=== PATIENT | female | born 1950 | race Caucasian/White ===

== ENCOUNTER → 2020-01-01 11:56 | Outpatient (CLI) | payer OTHER, SELFPAY ==
--- NOTE | 2020-01-01 | DI.RAD.S_ITS ---
PROCEDURE: XR CHEST 2V INDICATIONS: COUGH TECHNIQUE: 2 views of the chest were acquired. COMPARISON: [facility], CT, ABDOMEN/PELVIS WITH CONTRAST, 11/25/2015, 10:50. [facility], CT, KIDNEY/ URETER/BLADDER, 10/03/2015, 18:37. FINDINGS: Surgical changes and devices: None. Lungs and pleura: Lungs are clear. No pleural effusions or pneumothorax. Mediastinum: The cardiac contours are within normal limits. The aorta demonstrates calcification and tortuosity. A hiatal hernia can be seen. Bones and chest wall: No suspicious bony abnormalities. Age-appropriate bony degenerative changes are seen. Accentuated thoracic kyphosis is seen. Soft tissues appear unremarkable. IMPRESSION: Clear lungs. If there is clinical concern for a developing pulmonary process, a short-term followup chest series (with PA and lateral views, performed in deep inspiration) is suggested for further evaluation. Dictated by: John Jones M.D. on 01/01/2020 at 11:28 Approved by: John Jones M.D. on 01/01/2020 at 11:29
== END ==
PROVIDERS: Family Provider Family Medicine; PCP Family Medicine; Referring Provider Family Medicine; Visit Provider Family Medicine
DX: R05 Cough (principal)
CPT/HCPCS: 71046

== ENCOUNTER → 2020-05-21 12:09 | Outpatient (CLI) | payer OTHER, SELFPAY ==
--- NOTE | 2020-05-21 | DI.RAD.S_ITS ---
PROCEDURE: XR FINGER RT MIN 2V INDICATIONS: RIGHT RING FINGER PAIN/ FOREIGN OBJECT? TECHNIQUE: AP hand, 2 views of the right finger(s) acquired. COMPARISON: None. FINDINGS: Bones: No fracture identified. Diffuse interphalangeal and metacarpophalangeal degenerative changes. 4 mm ill-defined density seen in palmar soft tissues of the right ring finger at the level of the proximal phalanx. This could represent cortical fracture fragment although cannot exclude loose body. There is associated soft tissue swelling. Incidental marginal lucency projecting in the 3rd metacarpal head. First CMC and triscaphe joint degeneration IMPRESSION: Radiopaque foreign body versus cortical fracture fragment projecting in the volar soft tissues of the ring finger at the level of the proximal phalanx as above. Dictated by: Chan Reed M.D. on 05/21/2020 at 15:26 Approved by: Chan Reed M.D. on 05/21/2020 at 15:29
== END ==
PROVIDERS: Family Provider Family Medicine; PCP Family Medicine; Referring Provider Family Medicine; Visit Provider Family Medicine
DX: M79.644 Pain in right finger(s) (principal); M18.11 Unilateral primary osteoarthritis of first carpometacarpal joint, right hand
CPT/HCPCS: 73140

== ENCOUNTER → 2020-07-01 11:09 | Outpatient (CLI) | payer OTHER, SELFPAY ==
--- NOTE | 2020-07-01 | DI.RAD.S_ITS ---
PROCEDURE: XR FINGER RT MIN 2V INDICATIONS: Foreign body right ring finger TECHNIQUE: AP hand, 2 views of the 4th finger(s) acquired. COMPARISON: [facility], , XR FINGER RT MIN 2V, 05/21/2020, 11:15. FINDINGS: Bones: No fractures or dislocations. No suspicious bony lesions. Soft tissues: Again noted is linear foreign body within soft tissue projecting over volar aspect of 4th proximal phalangeal head unchanged from previous study. IMPRESSION: Foreign body in soft tissue over volar aspect of 4th proximal phalangeal head unchanged from previous study. No fracture or dislocation. Dictated by: Antonio Choe M.D. on 07/01/2020 at 14:26 Approved by: Antonio Choe M.D. on 07/01/2020 at 14:27
== END ==
PROVIDERS: Family Provider Family Medicine; PCP Family Medicine; Referring Provider Family Medicine; Visit Provider Family Medicine
DX: S60.45 Superficial foreign body of fingers (principal); W45.8XXD Other foreign body or object entering through skin, subsequent encounter
CPT/HCPCS: 73140

== ENCOUNTER → 2021-04-28 09:50 | Outpatient (CLI) | payer OTHER, SELFPAY | PROVIDERS: Family Provider Family Medicine; PCP Family Medicine; Referring Provider Family Medicine; Visit Provider Family Medicine | DX: Z78.0 Asymptomatic menopausal state (principal); E05.90 Thyrotoxicosis, unspecified without thyrotoxic crisis or storm; Z87.891 Personal history of nicotine dependence | CPT/HCPCS: 77080 ==

== ENCOUNTER → 2021-05-23 13:33 | Outpatient (CLI) | payer OTHER, SELFPAY ==
--- NOTE | 2021-05-23 | DI.MG.S_ITS ---
BILATERAL DIGITAL SCREENING MAMMOGRAM 3D/2D WITH CAD: 05/23/2021 CLINICAL: Routine screening. Baseline exam by default. No prior exams were available for comparison. The tissue of both breasts is heterogeneously dense. This may lower the sensitivity of mammography. Current study was also evaluated with a Computer Aided Detection (CAD) system. There are calcifications in both breasts. No significant masses, calcifications, or other findings are seen in either breast. IMPRESSION: BENIGN There is no mammographic evidence of malignancy. A 1 year screening mammogram is recommended. This exam was interpreted at Station ID: [id number]. NOTE: For mammograms, a report in lay terms will be sent to the patient. Approximately 15% of breast malignancies will not be visualized mammographically. In the management of a palpable breast mass, a negative mammogram must not discourage biopsy of a clinically suspicious lesion. Electronically Signed By: Daniel Gerard M.D. aty/:05/23/2021 14:46:59 letter sent: Normal Exam ACR BI-RADS Category 2: Benign Finding(s) [id number]
== END ==
PROVIDERS: Family Provider Family Medicine; PCP Family Medicine; Referring Provider Family Medicine; Visit Provider Family Medicine
DX: Z12.31 Encounter for screening mammogram for malignant neoplasm of breast (principal)
CPT/HCPCS: 77063; 77067

== ENCOUNTER → 2021-07-07 11:01 | Outpatient (CLI) | payer OTHER, SELFPAY ==
--- NOTE | 2021-07-07 11:06 | DI.RAD.S_ITS ---
PROCEDURE: XR ANKLE LT MIN 3V INDICATIONS: LEFT ANKLE PAIN TECHNIQUE: 3 views of the ankle were acquired. COMPARISON: None. FINDINGS: Bones: No fractures or dislocations. Ankle mortise is normally aligned. No suspicious bony lesions. Enthesophytes at the Achilles tendon insertion and moderate plantar calcaneal spurring. Degenerative spurring and joint space loss in the midfoot and partially imaged at the MTP joints. Soft tissues: No tibiotalar joint effusion. Achilles tendon appears normal. IMPRESSION: 1. Intact tibiotalar joint. 2. Dorsal and plantar calcaneal spurring. 3. Partially imaged mid and forefoot degenerative change. Dictated by: Diana Wagner M.D. on 07/07/2021 at 16:48 Approved by: Diana Wagner M.D. on 07/07/2021 at 16:49
--- NOTE | 2021-07-07 11:06 | DI.RAD.S_ITS ---
PROCEDURE: XR KNEE LT 3V INDICATIONS: LEFT KNEE PAIN TECHNIQUE: 3 views of the knee were acquired. COMPARISON: [facility], , KNEE 3V LEFT, 11/03/2017, 14:50. FINDINGS: Bones: No fractures or dislocations. No suspicious bony lesions. Moderate medial patellofemoral compartment osteoarthritis. Mild lateral compartment osteoarthritis. Soft tissues: No joint effusion. No suspicious soft tissue calcifications. IMPRESSION: Tricompartmental osteoarthritis. Dictated by: Candice Friend MD, PhD on 07/07/2021 at 15:30 Approved by: Candice Friend MD, PhD on 07/07/2021 at 15:30
--- NOTE | 2021-07-07 11:06 | DI.RAD.S_ITS ---
PROCEDURE: XR SHOULDER LT MIN 2V INDICATIONS: left shoulder pain TECHNIQUE: 3 views of the shoulder were acquired. COMPARISON: None. FINDINGS: High-riding left humeral head indicative of chronic rotator cuff tear. Moderate glenohumeral and severe acromioclavicular joint space narrowing with osteophytosis and subchondral sclerosis. IMPRESSION: High-riding humeral head indicative of chronic rotator cuff tear. Moderate glenohumeral and severe acromioclavicular osteoarthritis. Dictated by: Eleuterio Lipscomb M.D. on 07/07/2021 at 14:58 Approved by: Eleuterio Lipscomb M.D. on 07/07/2021 at 14:58
--- NOTE | 2021-07-07 11:06 | DI.RAD.S_ITS ---
PROCEDURE: XR HAND RT MIN 3V INDICATIONS: right middle finger pain TECHNIQUE: 3 views of the hand(s) acquired. COMPARISON: None. FINDINGS: Bones: No fractures or dislocations. Carpal bones are normally aligned. No suspicious bony lesions. First CMC joint osteoarthritis. No osseous erosive changes. Soft tissues: 3 millimeter calcification noted in the 4th finger soft tissues at the palmar margin of the neck of the 4th proximal phalange. IMPRESSION: No fracture. No acute osseous lesion. If symptoms and/or clinical suspicion for pathology persists, further assessment with repeat radiographs (7-10 days) or advanced imaging (e.g. CT, MRI or bone scan) should be considered. Dictated by: Candice Friend MD, PhD on 07/07/2021 at 15:30 Approved by: Candice Friend MD, PhD on 07/07/2021 at 15:32
== END ==
PROVIDERS: Family Provider Family Medicine; PCP Family Medicine; Referring Provider Family Medicine; Visit Provider Family Medicine
DX: M25.512 Pain in left shoulder (principal); M79.644 Pain in right finger(s); M25.562 Pain in left knee; M25.572 Pain in left ankle and joints of left foot; M19.012 Primary osteoarthritis, left shoulder; M17.12 Unilateral primary osteoarthritis, left knee; M18.11 Unilateral primary osteoarthritis of first carpometacarpal joint, right hand; M77.32 Calcaneal spur, left foot
CPT/HCPCS: 73030; 73130; 73562; 73610

== ENCOUNTER → 2022-01-26 20:11 | Outpatient (ROUT) | payer OTHER, SELFPAY ==
[2022-01-26 21:35] LABS: Influenza A - CEPHEID Flu A NEGATIVE (NEGATIVE); Influenza B - CEPHEID Flu B NEGATIVE (NEGATIVE)
[2022-01-26 21:52] LABS: COVID-19 CEPHEID PCR (VTM/NP) Negative (Negative)
== END ==
PROVIDERS: Family Provider Family Medicine; PCP Family Medicine; Visit Provider Family Medicine
DX: R05.1 Acute cough (principal); R51.9 Headache, unspecified
CPT/HCPCS: 0240U

== ENCOUNTER → 2022-02-02 15:19 | Outpatient (CLI) | payer OTHER, SELFPAY ==
--- NOTE | 2022-02-02 15:22 | DI.RAD.S_ITS ---
PROCEDURE: XR CHEST 2V INDICATIONS: COUGH TECHNIQUE: 2 views of the chest were acquired. COMPARISON: [facility], CR, XR CHEST 2V, 01/01/2020, 12:02. FINDINGS: Surgical changes and devices: None. Lungs and pleura: Coarsened interstitial markings. No consolidation, pleural effusions or pneumothorax. Mediastinum: Mediastinal contours are normal. Heart size is normal. Bones and chest wall: No suspicious bony abnormalities. Soft tissues appear unremarkable. IMPRESSION: No acute cardiopulmonary abnormality. Dictated by: Dwayne Byrd M.D. on 02/02/2022 at 16:12 Approved by: Dwayne Byrd M.D. on 02/02/2022 at 16:13
== END ==
PROVIDERS: Family Provider Family Medicine; PCP Family Medicine; Referring Provider Family Medicine; Visit Provider Family Medicine
DX: R05.8 Other specified cough (principal)
CPT/HCPCS: 71046

== ENCOUNTER → 2022-05-18 10:40 | Outpatient (CLI) | payer OTHER, SELFPAY ==
--- NOTE | 2022-05-18 10:42 | DI.RAD.S_ITS ---
PROCEDURE: XR KNEE LT 3V INDICATIONS: BILATERAL KNEE PAIN TECHNIQUE: 3 views of the knee were acquired. COMPARISON: [facility], , XR KNEE LT 3V, 07/07/2021, 11:01. FINDINGS: Bones: Three views of the left knee demonstrate tricompartmental degenerative changes with complete loss of the joint space medially and tricompartmental osteophytes. The patella is well aligned with medial patellar osteophyte. Soft tissues: No joint effusion. No suspicious soft tissue calcifications. IMPRESSION: Tricompartmental degenerative changes consistent with osteoarthritis. Dictated by: Nazario Clemente M.D. on 05/18/2022 at 12:25 Approved by: Nazario Clemente M.D. on 05/18/2022 at 12:25
--- NOTE | 2022-05-18 10:42 | DI.RAD.S_ITS ---
PROCEDURE: XR HIP W PEL IF DONE KHRIS MIN 4V INDICATIONS: BILATERAL HIP PAIN TECHNIQUE: AP pelvis with lateral view(s) of the bilateral hip(s). COMPARISON: None. FINDINGS: Bones: No fractures or dislocations. Pelvic ring appears intact. No suspicious bony lesions. Mild to moderate bilateral hip degenerative change. Soft tissues: The visualized bowel gas pattern is normal. No suspicious soft tissue calcifications. IMPRESSION: [id number] bilateral hip degenerative change. No evidence acute bony abnormality of the pelvis and bilateral hips. If clinical suspicion and/or symptoms persist, further assessment with repeat plain films, or advanced imaging (e.g., CT, MRI, or bone scan) may be helpful for further assessment. Dictated by: Orlin Gutiérrez M.D. on 05/18/2022 at 17:03 Approved by: Orlin Gutiérrez M.D. on 05/18/2022 at 17:04
--- NOTE | 2022-05-18 10:42 | DI.RAD.S_ITS ---
PROCEDURE: XR KNEE RT 3V INDICATIONS: BILATERAL KNEE PAIN TECHNIQUE: 3 views of the knee were acquired. COMPARISON: [facility], CR, XR KNEE LT 3V, 07/07/2021, 11:01. FINDINGS: Bones: Three views of the right knee demonstrate tricompartmental degenerative changes with tricompartmental osteophytes. There is complete loss of the joint space medially. The patella is well aligned with medial patellar osteophyte. Soft tissues: No joint effusion. No suspicious soft tissue calcifications. IMPRESSION: Tricompartmental degenerative changes consistent with osteoarthritis. Dictated by: Nazario Clemente M.D. on 05/18/2022 at 12:23 Approved by: Nazario Clemente M.D. on 05/18/2022 at 12:24
== END ==
PROVIDERS: Family Provider Family Medicine; PCP Family Medicine; Referring Provider Family Medicine; Visit Provider Family Medicine
DX: M25.562 Pain in left knee (principal); M25.561 Pain in right knee; M25.551 Pain in right hip; M25.552 Pain in left hip
CPT/HCPCS: 73522; 73562

== ENCOUNTER → 2022-08-28 09:51 | Outpatient (CLI) | payer OTHER, SELFPAY ==
--- NOTE | 2022-08-28 | DI.RAD.S_ITS ---
PROCEDURE: XR CHEST 2V INDICATIONS: cough TECHNIQUE: 2 views of the chest were acquired. COMPARISON: [facility], CR, XR CHEST 2V, 02/02/2022, 15:18. FINDINGS: Surgical changes and devices: None. Lungs and pleura: Lungs are clear. No pleural effusions or pneumothorax. Mediastinum: Mediastinal contours are normal. Heart size is normal. Bones and chest wall: No suspicious bony abnormalities. Soft tissues appear unremarkable. IMPRESSION: No evidence acute pulmonary process. Dictated by: Orlin Gutiérrze M.D. on 08/28/2022 at 13:42 Approved by: Orlin Gutiérrez M.D. on 08/28/2022 at 13:45
== END ==
PROVIDERS: Family Provider Family Medicine; PCP Family Medicine; Referring Provider Family Medicine; Visit Provider Family Medicine
DX: R05.9 Cough, unspecified (principal)
CPT/HCPCS: 71046

== ENCOUNTER → 2022-09-23 10:25 | Outpatient (CLI) | payer OTHER, SELFPAY ==
[2022-09-23 11:42] LABS: Add Manual Diff / Slide Review NO; Basophils Absolute Auto 0 /uL (0-100); Basophils Percent Auto 0.8 % (0-2); Eosinophils Absolute Auto 200 /uL (0-450); Eosinophils Percent Auto 2.6 % (2-4); Hematocrit 37.7 % (36-46); Hemoglobin 12.9 g/dL (12.0-16.0); Lymphocytes Absolute Auto 1600 /uL (1100-4500); Lymphocytes Percent Auto 24.4 % (25-40); Mean Corpuscular HGB Conc 34.3 % (30-36); Mean Corpuscular Hemoglobin 32.4 PG (26-34); Mean Corpuscular Volume 94.7 fL (80-100); Monocytes Absolute Auto 600 /uL (0-900); Monocytes Percent Auto 9.3 % (3-14); Neutrophils Absolute Auto 4000 /uL (1500-7000); Neutrophils Percent Auto 62.9 % (50-75); Platelet Count 276 X10^3/uL (150-400); Red Blood Cell Count 3.98 X10^6/uL (4.0-5.2); Red Cell Distribution Width 14.2 % (11.6-14.8); White Blood Cell Count 6.4 X10^3/uL (4.5-11.0)
[2022-09-23 11:48] LABS: Hemoglobin A1C% w Est Avg Glu 5.2 % (4.0-6.0)
[2022-09-23 12:08] LABS: BUN Creatinine Ratio 28.3 (6-22); Blood Urea Nitrogen 26 mg/dL (7-17); Calcium 9.2 mg/dL (8.4-10.2); Carbon Dioxide 27 mmol/L (22-32); Chloride 100 mmol/L (98-107); Estimated Glomerular Filt Rate > 60 mL/min (>60); Glucose 94 mg/dL (80-110); HEMOLYSIS < 15 (0-50); Potassium 4.7 mmol/L (3.4-5.1); Sodium 136 mmol/L (137-145)
== END ==
PROVIDERS: Family Provider Family Medicine; PCP Family Medicine; Referring Provider Orthopaedic Surgery; Visit Provider Orthopaedic Surgery
DX: Z01.818 Encounter for other preprocedural examination (principal); R73.9 Hyperglycemia, unspecified; Z01.812 Encounter for preprocedural laboratory examination; N39.0 Urinary tract infection, site not specified
CPT/HCPCS: 36415; 80048; 83036; 85025; 93005

== ENCOUNTER → 2022-10-13 11:16 | Outpatient (CLI) | payer OTHER, SELFPAY ==
[2022-10-13 12:55] LABS: COVID19 -Nasal RAPID Negative (Negative)
== END ==
PROVIDERS: Family Provider Family Medicine; PCP Family Medicine; Referring Provider Orthopaedic Surgery; Visit Provider Orthopaedic Surgery
DX: Z20.822 Contact with and (suspected) exposure to COVID-19 (principal)
CPT/HCPCS: 87635; C9803

== ENCOUNTER 2022-10-16 11:00 | Observation (INO) | payer OTHER, SELFPAY ==
[2022-10-12 13:40] VITALS: BMI 41.5
[2022-10-15] VITALS (12 sets, daily range): BP systolic 129–175; BP diastolic 59–94; PULSE 66–83; RESP 10–20; TEMP 36.2–37; O2SAT 93–100; BMI 41.1
[2022-10-15] MEDS: VANCOMYCIN 1,000 MG/200 ML PIGGYBACK 200 MG IV (12:31)
[2022-10-15] MEDS: LACTATED RINGERS 1,000 ML 42 ML IV ×2 (12:32→16:03)
[2022-10-15] MEDS: ACETAMINOPHEN 325 MG TABLET 975 MG PO (12:45)
[2022-10-15] MEDS: CELECOXIB 200 MG CAPSULE PO (12:45)
[2022-10-15] MEDS: PREGABALIN 75 MG CAPSULE PO (12:48)
--- NOTE | 2022-10-15 13:22 | PM.PREOP ---
Pre-operative Note COVID-19 COVID-19 status: Negative Interval Note History & Physical reviewed/Exam performed by Physician: Yes Changes to H&P: No
--- NOTE | 2022-10-15 13:23 | P.OP_ITS ---
Operative Date/Time/Diagnoses Date of procedure: 10/15/22 Time of procedure: 13:45 Pre-op diagnosis: right knee OA Post-op diagnosis: same Procedure & Clinicians Procedure: right total knee arthroplasty Same procedure as scheduled: Yes Indications: The patient has had progressively worsening right knee pain with radiographic changes consistent with arthritis. Non-operative management has failed and the patient has requested total knee replacement. The risks, benefits and alternatives to surgery were discussed with the patient prior to proceeding. Risks discussed included, but were not limited to, failure to relieve pain, stiffness, infection, nerve damage, deep venous thrombosis, pulmonary embolism, stroke, coma, heart attack, permanent paralysis and , as well as the potential need for eventual revision of the prosthetic. Surgeon: Erica Medina Automatic Head Sawyer: Pam Olguin Anesthesia Type: General and Spinal Operative Notes Findings: Severe right knee osteoarthritis, adequate stability Closure Type: primary Specimen(s): none sent Prosthetic devices, grafts, tissues, transplants, or devices: Medina and nephew marvaney BCS 2 size 5 femur, size 3 tibia, +10 poly, 35 x 7.5 mm patella Estimated Blood Loss (mL): 250 Blood products transfused: none Tourniquet time (min): 32 Procedure in detail: The patient was seen in the pre-operative area, where the patient identified the right knee as the operative site and this was marked with my initials. The patient received pre-operative antibiotics, and was taken to the operating room and placed on the operative table in the supine position. After satisfactory anesthesia, a time study observer out was performed. The right leg was encircled with a tourniquet about the proximal thigh, and the leg was prepared from the toes to the tourniquet with ChloroPrep in the usual fashion and draped through sterile drapes. The leg was elevated and exsanguinated with Eschmark bandage and the tourniquet inflated to [250] mmHg pressure. The knee was approached through an approximately 20 cm incision centered over the patella and carried into the knee through a medial parapatellar arthrotomy. A portion of the medial and lateral meniscus was resected. There was a venous tourniquet. We put the tourniquet down after about 2 minutes. Soft tissue was carefully mobilized around the patella the patella was measured with a caliper. Bone was resected from the patella and the patellar height was reconstituted with up an appropriate sized patellar component. A cover was then placed on the patella. A small amount of additional medial and lateral meniscus was resected. The distal femur was cut at 5?. A [+2] cut was used. It looked like an appropriate distal femoral cut and the cut was made without difficulty. An extramedullary guide was used for the tibial cut. 10 mm was resected off the least affected side.The tibia was prepared. The rotation was assessed. The patient was placed in extension residual medial and lateral meniscus as well as any residual bone was carefully resected. [No] additional tibia was resected. Hemostasis was achieved especially posteriorly. Additional local was injected into the posterior capsule. The extension gap was assessed and additional releases for gap balancing were performed as necessary. It was checked with the gap furniture repair technician. The guide was placed on the femur and finishing cuts were made on the femur. We checked both 3? of external rotation with the measured resection as well as gap balancing and they were very close. The femoral component trial was placed and the notch was finished. The rotation was assessed and the appropriate size femoral guide was placed on the distal femur and finishing cuts were made. There was no evidence of notching. The anterior, posterior and chamfer cuts were then made. The posterior osteophytes and soft tissues were then removed. The posterior capsule was injected with part of a mixture of 60 ml 0.25% Marcaine mixed with 20 ml Exparel for post operative pain control. The remainder of this mixture was injected into the capsule and subcutaneous tissues during cement curing. The tibial and femoral components were then placed and the knee placed through a range of motion. Range of motion was [0-130], with good stability throughout the range. The trials were then removed, and the tibia was finished. The bone was prepared with pulsatile lavage, and dried with a sponge. Cement was applied and the final prosthetics placed. Excess cement was removed during and after cement curing. A brief Betadine soak was performed. After confirming there was no extruded cement posteriorly, the final tibial insert was placed. The knee was copiously irrigated and the tourniquet deflated. Hemostasis was obtained with the [Aquamantys system]. A drain was placed and brought out superolaterally. The capsule was closed with interrupted nonabsorbable suture. The subcutaneous layer was closed with barbed sutures, and the skin with a running 3-0 V-Lock suture and skin claritza. A michelle dressing was applied and the patient was taken to recovery having tolerated the procedure well. Complications: none Post-operative Condition: stable Disposition: Acute Care Plan for aftercare: The patient will be maintained on a standard total knee replacement protocol with weight bearing as tolerated. The patient will receive aspirin and sequential compression devices for DVT prophylaxis. The patient will be discharg ed home when safe for the home environment.
[2022-10-15] MEDS: CEFAZOLIN 2 GM/100 ML PREMIX 100 ML IV (13:40)
[2022-10-15] MEDS: TRANEXAMIC ACID 1,000 MG VIAL 1000 MG INJ ×2 (14:18→15:53)
[2022-10-15] MEDS: BUPIVACAINE LIPOSOME 266 MG/20 ML VIAL INJ (14:23)
[2022-10-15] MEDS: BUPIVACAINE 0.5% W/ EPI (PF) 30 ML VIAL INJ (14:23)
--- NOTE | 2022-10-15 14:25 | SUR.OPER ---
Supine on padded OR bed. Pillow under head, arms secured on padded armboards <90 degree abduction. Safety belt across torso. Non-operative leg secured with tape over blanket over lower leg. Operative leg secured in DeMayo positioner. Foam padded brace at thigh of operative leg. Pt positioned per direction and supervision of Dr Medina.
--- NOTE | 2022-10-15 15:00 | DI.RAD.S_ITS ---
PROCEDURE: XR KNEE LT 1TO2V INDICATIONS: prosthesis placement TECHNIQUE: 3 view(s) of the knee acquired. COMPARISON: [facility], CR, XR KNEE LT 3V, 05/18/2022, 10:48. FINDINGS: Bones: Patient is status post knee joint arthroplasty. Hardware components are in expected positions. Visualized bony structures are intact. Soft tissues: Overlying postoperative changes are noted. IMPRESSION: Postop changes from right total knee arthroplasty with anatomic right knee alignment. Dictated by: Antonio Choe M.D. on 10/15/2022 at 16:58 Approved by: Antonio Choe M.D. on 10/15/2022 at 16:58
[2022-10-15] MEDS: SODIUM CHLORIDE IRRIG SOLUTION 250 ML, POVIDONE-IODINE SPONGE STICKS 1 APPLIC IRR (15:53)
[2022-10-15] MEDS: ONDANSETRON 4 MG/2 ML INJ IV (16:50)
[2022-10-15] MEDS: hydrOXYzine pamoate 25 MG CAPSULE PO (16:50)
[2022-10-15] MEDS: OXYCODONE IR 5 MG TABLET PO (16:50)
[2022-10-15] MEDS: HYDROMORPHONE 2 MG INJ IV ×2 (16:57→17:09)
[2022-10-15] MEDS: LORazepam 2 MG/ML INJ 0.25 MG IV (17:03)
[2022-10-15] MEDS: ACETAMINOPHEN 325 MG TABLET 650 MG PO (18:01)
[2022-10-15] MEDS: IBUPROFEN 400 MG TABLET PO ×2 (18:02→21:27)
[2022-10-15] MEDS: LACTATED RINGERS 1,000 ML 100 ML IV (18:03)
--- NOTE | 2022-10-15 18:25 | PC.NURSE ---
pt falls asleep and desat to 83%, now on 2L nc 97%
[2022-10-15] MEDS: ASPIRIN EC 81 MG TABLET PO (21:26)
[2022-10-15] MEDS: DOCUSATE 100 MG CAPSULE PO (21:26)
[2022-10-15] MEDS: OXYCODONE IR 10 MG TABLET PO (21:28)
[2022-10-15] MEDS: CEFAZOLIN VIAL 3 GM in SODIUM CHLORIDE 0.9% 100 ML IV (21:33)
[2022-10-16] VITALS: BP 115/64; PULSE 72; RESP 17; TEMP 36.6; O2SAT 95
[2022-10-16] MEDS: ACETAMINOPHEN 325 MG TABLET 650 MG PO ×3 (00:52→11:51)
[2022-10-16] MEDS: IBUPROFEN 400 MG TABLET PO ×3 (00:54→09:19)
[2022-10-16] MEDS: OXYCODONE IR 5 MG TABLET PO ×3 (03:22→11:52)
[2022-10-16 04:00] VITALS: BP 143/69; PULSE 71; RESP 15; TEMP 36.6; O2SAT 96
[2022-10-16 04:54] LABS: Hematocrit 31.7 % (36-46); Hemoglobin 10.5 g/dL (12.0-16.0)
[2022-10-16] MEDS: CEFAZOLIN VIAL 3 GM in SODIUM CHLORIDE 0.9% 100 ML IV (05:56)
--- NOTE | 2022-10-16 06:27 | P.DS_ITS ---
History of Present Illness History of Present Illness Date Patient Seen: 10/16/22 Time Patient Seen: 06:29 Chief complaint: TKA right Narrative: Operative Date/Time/Diagnoses Date of procedure: 10/15/22 Time of procedure: 13:45 Pre-op diagnosis: right knee OA Post-op diagnosis: same Procedure & Clinicians Procedure: right total knee arthroplasty Same procedure as scheduled: Yes Indications: The patient has had progressively worsening right knee pain with radiographic changes consistent with arthritis. Non-operative management has failed and the patient has requested total knee replacement. The risks, benefits and alter natives to surgery were discussed with the patient prior to proceeding. Risks discussed included, but were not limited to, failure to relieve pain, stiffness, infection, nerve damage, deep venous thrombosis, pulmonary embolism, stroke, coma, heart attack, permanent paralysis and , as well as the potential need for eventual revision of the prosthetic. Surgeon: Erica Medina Director Of Food And Beverage Services: Pam Olguin Anesthesia Type: General and Spinal Operative Notes Findings: Severe right knee osteoarthritis, adequate stability Closure Type: primary Specimen(s): none sent Prosthetic devices, grafts, tissues, transplants, or devices: Medina and nephew faizan BCS 2 size 5 femur, size 3 tibia, +10 poly, 35 x 7.5 mm patella Estimated Blood Loss (mL): 250 Blood products transfused: none Tourniquet time (min): 32 Discharge Providers Provider Discharge Date: 10/16/22 Primary care physician: Clayton Valderrama MD Consults: 10/15/22 06:00 Consult to Anesthesiology Routine Comment: Consulting Provider: Anesthesiologist Reason for consultation: Regional block for post operative pain control 10/15/22 17:48 Consult to Discharge Planning Routine Comment: Consult to Physical Therapy Evaluate & Treat Comment: Physician Instructions: postop TKA protocol Discharge provider: Pam Olguin PA-C Summary Hospital Course Discharge Diagnosis: Right knee osteoarthritis, s/p right total knee arthroplasty Hospital Course: Ms Escobar's hospital course was unremarkable. On the morning of POD# 1, she said she was sleeping well and her pain was well-controlled (despite not having a spinal block prior to procedure). She had not worked with PT yet, but she had been up to the bathroom multiple times without difficulty. Eating and voiding without difficulty. She has her and daughter at home to help her, and her daughter owns a cross-fit gym and has prepared their 2-story home to make everything accessible for her mother. Exam Vital Signs (past 8 hours): - 10/16/22 00:00 10/16/22 04:00 10/16/22 06:00 Temperature 97.8 F 97.8 F Pulse Rate 72 71 Respiratory Rate 17 15 Blood Pressure 115/64 143/69 H Pulse Oximetry 95 96 Oxygen Flow Rate 3 1 Oxygen Delivery Method Nasal Cannula Oxygen Flow Rate 1 Narrative Exam Narrative: 5/5 strength in hip flexors, quadriceps, hamstrings, DF, PF, EHL; sensation to light touch intact throughout RLE. Calf soft, compressible, nontender and without palpable cords or masses. DELIA dressing functioning, CDI. Objective Labs Result Diagrams: 10/16/22 04:33 Labs: Laboratory Results - last 24 hr 10/16/22 04:33 Hgb 10.5 L Hct 31.7 L PFSH Medical History (Updated 10/12/22 @ 14:16 by Lupe Murillo RN) BCC (basal cell carcinoma), face Depression Melanoma Psoriasis PTSD (post-traumatic stress disorder) Raynaud's phenomenon Vitamin K deficiency Surgical History (Updated 10/16/22 @ 06:36 by Pam Olguin PA-C) History of conization of cervix Hx of colonoscopy with polypectomy Social History household members: spouse Smoking Status: Former smoker alcohol intake: current Discharge Assessment & Plan Assessment and Plan Assessment: Right knee osteoarthritis, s/p right total knee arthroplasty Plan of Treatment: Discharge home after PT today if PT agrees. Multimodal pain control, ASA 81 mg BID for VTE prophylaxis, outpt PT, f/u as scheduled in office in 2 weeks. Discharge Plan Discharge Plan Patient Disposition: Home Discharge orders & Medications Discharge Orders: Discharge (Order); Ordered 10/16/22 Ordered By: Pam Olguin Prescriptions: New oxycodone 5 mg Tablet 5 mg PO Q4H PRN (Reason: Pain, Moderate (4-6)) Qty: 60 0RF acetaminophen 325 mg Tablet 650 mg PO Q6HR PRN (Reason: fever or pain) Qty: 240 0RF docusate sodium 100 mg Capsule 100 mg PO BID PRN (Reason: constipation) Qty: 60 1RF ibuprofen 400 mg Tablet 400 mg PO Q4HR Qty: 120 0RF aspirin 81 mg Tablet,Delayed Release (Dr/Ec) 81 mg PO BID Qty: 90 0RF Continued fluoxetine 40 mg Capsule 40 mg PO QAM Follow up/Referrals: Clayton Valderrama MD [Primary Care Provider] - Erica Medina MD [Physician] - As previously scheduled (Follow up w/ Dr Medina on 10/28/2022 @ 2:00 pm at [email or web address] Diet/Activity/Treatments Diet: Diet as Tolerated Activity: Walk frequently! Cold/Heat Therapy: Ice to knee as needed for pain. Skin/Wound/Dressing Care Report to your healthcare provider any signs of infection, such as:: chills, fever, night sweats, unusual drainage and unusual redness Dressing: May remove PEPITO wrap and shower on 10/18/2022. Leave DELIA dressing in place until follow up appointment in office. Batteries will in 5-7 days; when that happens, you can cut off the battery pack and dispose of it but leave the dressing on. No bathing or otherwise soaking incision. Call the office if the dressing becomes totally saturated inside. Visit Report/Discharge Packet Instructions: DI for Knee Replacement Stand Alone Forms: Patient Portal/API, Stroke Signs & Symptoms, Surgery Discharge Discharge Data Primary Care Provider: Clayton Valderrama Attending Provider: Erica Medina
--- NOTE | 2022-10-16 08:27 | PC.NURSE ---
Addendum entered by Karolina Silva R.N. 10/16/22 08:59: Patient complained of heaviness in throat and trouble swallowing. She is anxious and states that she does not like this. Patient did have some anxiety last evening, but this resolved. She was able to sit at the side of the bed with physical therapy and passed some gas. She tried some water and states that her swallowing is better. When she sits down, patient would like to try some pudding. Original Note: Assess- Patient is alert and oriented x4, requested to have her SCDS taken off. Patient would like to eat breakfast before getting her medication. She has a michelle dressing to her r. knee, this is cdi, with motor flashing green. Ice packs taken off of knee for now. She is comfortable.
--- NOTE | 2022-10-16 08:50 | PT.IIE ---
Current Diagnoses Unilateral primary osteoarthritis, right knee (10/16/22) Presence of unspecified artificial knee joint (10/16/22) Surgery Performed Operation Date: 10/15/22 14:15 Actual Procedures p Total Knee Arthroplasty(Right) - Erica Medina MD Surgical History (Last Updated 10/12/22 @ 14:15 by Lupe Murillo, RN) History of conization of cervix Hx of colonoscopy with polypectomy Medical History (Last Updated 10/12/22 @ 14:16 by Lupe Murillo RN) BCC (basal cell carcinoma), face Depression Melanoma Psoriasis PTSD (post-traumatic stress disorder) Raynaud's phenomenon Vitamin K deficiency Physical Therapy Inpatient Evaluation/Re-Eval M1 PT/OT-IP Prior Functional Status Start: 10/16/22 13:21 Freq: NEEDED Status: Active Protocol: Document 10/16/22 08:50 AB (Rec: 10/16/22 13:36 AB [id number]) Medical Review Prior Functional Status Medical History Reviewed Yes Communication able to make needs known Mobility and Gait pt stated that she is independent with all mobilities and ambulation without AD Social History Household Members spouse Living Arrangements House Number of Stairs To Enter/Railing? 2 steps without rails to enter the house 14 steps B rails to get to bedroom level; pt stated that she has a recliner chair on main level of the house and can stay on the main level of the house Home Environment Walk in Shower Home Equipment Front Wheel Walker,Straight Cane Additional Social History Comment pt has an adjustable bed pt's daughter will stay with pt for ~ 1 week and will assist pt M2 PT-IP Current Condition Start: 10/16/22 13:21 Freq: NEEDED Status: Active Protocol: Document 10/16/22 08:50 AB (Rec: 10/16/22 13:36 AB [email or web address]) Physical Therapy Current Condition Current Condition Evaluation Date 10/16/22 Treatment Diagnosis s/p R TKA; difficulty in walking Onset Date 10/15/22 M3 PT-IP Subjective Start: 10/16/22 13:21 Freq: NEEDED Status: Active Protocol: Document 10/16/22 08:50 AB (Rec: 10/16/22 13:36 AB [email or web address]) Subjective Physical Therapy Visit Type Type Initial Evaluation Visit Start Time 08:50 Visit Stop Time 09:10 Total Visit Minutes 20 Number of DEVELOPMENT ASSOCIATE Visits 0 Physical Therapy Visit Comments Patient Comments wants to get up Therapy Pain Assessment Pain When Pain Assessed At Rest Pain Present Pain Present Pain Reported Location right knee Intensity 8 Scale Used Numeric (0 - 10) Pain Management Techniques Distraction,Modification of Treatment,Re-positioning, Timing of Activity with Medications M4 PT-IP Mobility and Gait Start: 10/16/22 13:21 Freq: NEEDED Status: Active Protocol: Document 10/16/22 08:50 AB (Rec: 10/16/22 13:36 AB [email or web address]) PT-Bed Mobility Assessment Supine to Sit Supine to Sit Maximum Assistance PT-Transfer Assessment Sit to and From Stand Sit to and from Stand Minimal Assistance,1 Person Assistance,Use of Upper Extremities Equipment Transfer Assistive Device Front Wheeled Walker Orthotic/Prosthetic Devices or Brace: No Transfers Transfer Destination Chair Transfer Technique ambulated Transfer Ability Level of Assist Minimal Assistance,1 Person Assistance,Use of Upper Extremities Comments Mobility Comments pt with nurse and stated that she feel like she is choking and needs to get up. completed supine to sit max A and max cues. HOB elevated and pt used bed rail to assist. pt sat on EOB and stated that she is feeling better. completed sit to stand min A and ambulated in room using FWW min A ~ 15 ft. c/o increase knee pain. pt stated that she wants to try to eat again. agreed to stay up on the chair. positioned on the chair. call light and table placed wtihin reach. informed pt regarding caregiver training when family arrives and pt agreed. Gait Assessment Gait Gait Assistance Required: Minimum Assistance Distance (Feet) 15 Able to Maintain Weight Bearing Status Yes During Gait Assistive Devices Assistive Device Gait Belt,Front Wheeled Walker Orthotic/Prosthetic Devices or Brace: No Gait Deviations General Gait Pattern Antalgic,Decreased Stride Length,Decreased Feet Clearance,Step-to Gait Factors Limiting Gait Function Factors Limiting Gait Function Decreased Activity Tolerance, Decreased Strength,Difficulty Following Directions,Limited Range of Motion,Pain,Poor Balance,Poor Safety Awareness PT-Balance Assessment Sitting Balance and Reactions Static Sitting Balance Ability Normal Dynamic Sitting Balance Ability Good Standing Balance and Reactions Static Standing Balance Ability Fair Dynamic Standing Balance Ability Fair Device Used FWW M5 PT-IP Objective Assessments Start: 10/16/22 13:21 Freq: NEEDED Status: Active Protocol: Document 10/16/22 08:50 AB (Rec: 10/16/22 13:36 AB [id number]) Orientation Orientation/Cognition Level of Alertness Alert Orientation Name,Place,Situation Language Function Ability No Deficits Noted Safety Awareness Decreased Safety Awareness Memory Description Short Term Impaired Gross Range of Motion Lower Extremity ROM Impairments R knee flexion: ~ 50 deg Strength Lower Extremity Strength Assessment Right Impaired Hip 4-/5 Knee 3+/5 Coordination Assessment Gross Coordination Gross Coordination WNL Sensation Assessment Sensation Gross Sensation WNL Muscle Tone Muscle Tone WNL Yes M6 PT-IP Treatment Start: 10/16/22 13:21 Freq: NEEDED Status: Active Protocol: Document 10/16/22 08:50 AB (Rec: 10/16/22 13:36 AB [id number]) Physical Therapy Treatment Education Education Provided Precautions,Weight Bearing Status,Post-Op Packet,Safety M7 PT-IP Assessment and Plan Start: 10/16/22 13:21 Freq: NEEDED Status: Active Protocol: Document 10/16/22 08:50 AB (Rec: 10/16/22 13:36 AB [email or web address]) PT Summary Assessment and Plan Potential Rehabilitation Potential Good Status of Condition at Evaluation Evolving Summary Impairments Pain,ROM,Strength,Balance, Coordination,Sensation,Tone, Cognition,Bed Mobility, Transfers,Gait,Activity Tolerance Assessment Summary pt requiring max A with bed mobility, min A for transfers and ambulation using FWW. pt plans to go home and family to assist her. Will conduct caregiver training when family arrives and also will complete stair climbing training. will continue to assess progress. Goals Bed Mobility Goal Standby Assistance Transfer Goal Standby Assistance,Front Wheeled Walker Gait Goal Standby Assistance,Front Wheel Walker Gait Distance 150 Other Goals up/down 2 steps SELLING SPECIALIST +SPC CGA up/down 14 steps B rails SBA Days to Meet Goals 5 Frequency of Treatment Frequency Of Treatment Twice a Day Treatment Plan Physical Therapy Treatment Plan Bed Mobility Training,Transfer Training,Gait Training, Therapeutic Exercise,Balance Retraining,Post Op Education, Discharge Planning,Hot or Cold Pack,Neuromuscular Re-ed, Coordination Retraining,Manual Therapy Weight Bearing Status Weight Bearing Status Weight Bear as Tolerated Allowed Weight Bearing Amount (enter % RLE WBAT or #) (%) Recommendations To Nursing Amount of Assist Needed 1 Person Assist Discharge Recommendations PT Discharge Recommendations Home with 19/04 Assist Available,Home Health, Outpatient PT Transportation Needs at Discharge Private Vehicle
[2022-10-16] MEDS: DOCUSATE 100 MG CAPSULE PO (09:19)
[2022-10-16] MEDS: ASPIRIN EC 81 MG TABLET PO (09:20)
[2022-10-16] MEDS: FLUoxetine 20 MG CAPSULE 40 MG PO (09:20)
[2022-10-16 09:53] VITALS: BP 140/63; PULSE 77; RESP 16; TEMP 36.6; O2SAT 97
--- NOTE | 2022-10-16 10:45 | PT.IPTN ---
Current Diagnoses Unilateral primary osteoarthritis, right knee (10/16/22) Presence of unspecified artificial knee joint (10/16/22) Surgery Performed Operation Date: 10/15/22 14:15 Actual Procedures p Total Knee Arthroplasty(Right) - Erica Medina MD Physical Therapy Treatment Note M2 PT-IP Current Condition Start: 10/16/22 13:21 Freq: NEEDED Status: Active Protocol: Document 10/16/22 08:50 AB (Rec: 10/16/22 13:36 AB [email or web address]) Physical Therapy Current Condition Current Condition Evaluation Date 10/16/22 Treatment Diagnosis s/p R TKA; difficulty in walking Onset Date 10/15/22 M3 PT-IP Subjective Start: 10/16/22 13:21 Freq: NEEDED Status: Active Protocol: Document 10/16/22 10:45 AB (Rec: 10/16/22 13:49 AB [email or web address]) Subjective Physical Therapy Visit Type Type Treatment Note Visit Start Time 10:45 Visit Stop Time 11:36 Total Visit Minutes 51 Number of MOBILE SALES EXPERT Visits 0 Physical Therapy Visit Comments Patient Comments agreeable to do PT Therapy Pain Assessment Pain When Pain Assessed At Rest Pain Present Pain Present Pain Reported Location right knee Intensity 8 Pain Management Techniques Apply Cold,Distraction, Modification of Treatment,Re- positioning,Timing of Activity with Medications M4 PT-IP Mobility and Gait Start: 10/16/22 13:21 Freq: NEEDED Status: Active Protocol: Document 10/16/22 10:45 AB (Rec: 10/16/22 13:49 AB [email or web address]) PT-Bed Mobility Assessment Supine to Sit Supine to Sit Standby Assistance Sit to Supine Sit to Supine Standby Assistance PT-Transfer Assessment Sit to and From Stand Sit to and from Stand Contact Guard Assistance,1 Person Assistance,Use of Upper Extremities Equipment Transfer Assistive Device Gait Belt,Front Wheeled Walker Orthotic/Prosthetic Devices or Brace: No Transfers Transfer Destination Chair Transfer Technique Stand Step Pivot Transfer Ability Level of Assist Contact Guard Assistance,1 Person Assistance,Use of Upper Extremities Comments Mobility Comments daughter and spouse in room for caregiver training. pt sitting on the chair. c/o increase pain but stated that she wants to go home and will do caregiver training. educated daughter on how to use safety belt and how to assist pt. daughter was able to put safety belt on. assisted pt with sit to stand and step transfer to the bed using fWW CGA. pt completed sit<>supine SBA and cues for techniques. educated daugther on how to assist pt with bed mobility if needed. pt completed wit to stand from eOB CGA with daughter assisting and ambulated in the hallway using FWW CGA ~ 100ft . educated pt and daughter on stair climbing. pt completed up/down platform step using SPC + SOLAR HOT WATER INSTALLER with PT assisting pt max A. daughter assisted on 2nd attempt and completed with pt. cued on techniques. pt and daughter without further concerns with mobility but c/o increase pain. nurse informed. assisted pt back to her room. ambulated from w/c to chair with daughter assisting using fWW CGA. positioned pt on the chair. call light and table placed within reach. Gait Assessment Gait Gait Assistance Required: Contact Guard Assist Distance (Feet) 100 Able to Maintain Weight Bearing Status Yes During Gait Assistive Devices Assistive Device Gait Belt,Front Wheeled Walker Orthotic/Prosthetic Devices or Brace: No Factors Limiting Gait Function Factors Limiting Gait Function Decreased Activity Tolerance, Decreased Strength,Difficulty Following Directions,Limited Range of Motion,Pain,Poor Balance,Poor Safety Awareness Stair Climbing Assessment Evaluation Level of Assist On Stairs Maximal Assistance,1 Person Assistance Devices Stair Climbing Assistive Devices Front Wheel Walker Technique/Endurance Stair Climbing Direction Ascend and Descend Stair Climbing Technique Step to Step Number of Steps Climbed 1 Stair Climbing Set # Repetitions (reps) 2 Comments Stair Climbing Comments pls refer to mobility section for details M5 PT-IP Objective Assessments Start: 10/16/22 13:21 Freq: NEEDED Status: Active Protocol: Document 10/16/22 08:50 AB (Rec: 10/16/22 13:36 AB [email or web address]) Orientation Orientation/Cognition Level of Alertness Alert Orientation Name,Place,Situation Language Function Ability No Deficits Noted Safety Awareness Decreased Safety Awareness Memory Description Short Term Impaired Gross Range of Motion Lower Extremity ROM Impairments R knee flexion: ~ 50 deg Strength Lower Extremity Strength Assessment Right Impaired Hip 4-/5 Knee 3+/5 Coordination Assessment Gross Coordination Gross Coordination WNL Sensation Assessment Sensation Gross Sensation WNL Muscle Tone Muscle Tone WNL Yes M6 PT-IP Treatment Start: 10/16/22 13:21 Freq: NEEDED Status: Active Protocol: Document 10/16/22 10:45 AB (Rec: 10/16/22 13:49 AB [email or web address]) Physical Therapy Treatment Education Education Provided Safety M7 PT-IP Assessment and Plan Start: 10/16/22 13:21 Freq: NEEDED Status: Active Protocol: Document 10/16/22 10:45 AB (Rec: 10/16/22 13:49 AB [id number]) PT Summary Assessment and Plan Potential Rehabilitation Potential Good Summary Impairments Pain,ROM,Strength,Balance, Coordination,Sensation,Tone, Cognition,Bed Mobility, Transfers,Gait,Activity Tolerance Progress Towards Goals Slow Progress due to Pain Assessment Summary caregiver training conducted and daughter will be able to assist pt with mobility. pt with c/o increase knee pain affecting activity tolerance and educated safety with stair climbing. pt agreed to stay on main level of the house at this time . pt plans to go home with family to assist and may go home when medically stable. Goals Bed Mobility Goal Standby Assistance Transfer Goal Standby Assistance,Front Wheeled Walker Gait Goal Standby Assistance,Front Wheel Walker Gait Distance 150 Other Goals up/down 2 steps SOLAR HOT WATER INSTALLER +SPC CGA up/down 14 steps B rails SBA Days to Meet Goals 5 Frequency of Treatment Frequency Of Treatment Twice a Day Treatment Plan Physical Therapy Treatment Plan Bed Mobility Training,Transfer Training,Gait Training, Therapeutic Exercise,Balance Retraining,Post Op Education, Discharge Planning,Hot or Cold Pack,Neuromuscular Re-ed, Coordination Retraining,Manual Therapy Weight Bearing Status Weight Bearing Status Weight Bear as Tolerated Allowed Weight Bearing Amount (enter % RLE WBAT or #) (%) Recommendations To Nursing Amount of Assist Needed 1 Person Assist Discharge Recommendations PT Discharge Recommendations Home with 19/04 Assist Available,Home Health, Outpatient PT Transportation Needs at Discharge Private Vehicle
== END 2022-10-16 13:15 | disposition home or self-care (01) ==
LOC: OR 12:16 → AC 12:16
PROVIDERS: Admitting Provider Orthopaedic Surgery; Family Provider Family Medicine; PCP Family Medicine; Referring Provider Orthopaedic Surgery; Visit Provider Orthopaedic Surgery
PROC: 0SRC0JZ Replacement of Right Knee Joint with Synthetic Substitute, Open Approach (ICD-10-PCS; CPT 27447; principal; 2022-10-15 14:15)
DX: M17.11 Unilateral primary osteoarthritis, right knee (principal)
CPT/HCPCS: 27447; 36415; 73560; 85014; 85018; 97162; 97530; C1776; G0378; C9290; J0690; J1100; J1170; J2060; J2250; J2405; J2704; J3010

== ENCOUNTER → 2023-03-15 12:07 | Outpatient (CLI) | payer OTHER, SELFPAY ==
[2022-10-15 18:33] VITALS: BMI 41.1
--- NOTE | 2023-03-15 | DI.RAD.S_ITS ---
PROCEDURE: XR HIP W PEL IF DONE BILAT 2V INDICATIONS: BILATERAL HIP PAIN TECHNIQUE: AP pelvis with lateral views of each hip. COMPARISON: [facility], CR, XR HIP W PEL IF DONE KHRIS 3TO4V, 05/18/2022, 10:48. FINDINGS: Bones: No acute fractures or dislocations. Pelvic ring appears intact. No suspicious bony lesions. Mild to moderate degenerative changes are seen in both hips with joint space narrowing and marginal osteophyte formation. Degenerative changes also noted in the included lumbar spine. Soft tissues: The visualized bowel gas pattern is normal. No suspicious soft tissue calcifications. IMPRESSION: [id number] bilateral hip osteoarthrosis, not significantly changed when compared to the exam from 05/18/2022. Degenerative changes are also seen in the lumbar spine. Approved by: Biju Plascencia M.D. on 03/15/2023 at 16:37
== END ==
PROVIDERS: Family Provider Family Medicine; PCP Family Medicine; Referring Provider Family Medicine; Visit Provider Family Medicine
DX: M16.0 Bilateral primary osteoarthritis of hip (principal); M25.551 Pain in right hip; M25.552 Pain in left hip
CPT/HCPCS: 73521

== ENCOUNTER → 2023-05-25 12:47 | Outpatient (CLI) | payer OTHER, SELFPAY ==
[2022-10-15 18:33] VITALS: BMI 41.1
--- NOTE | 2023-05-25 | DI.RAD.S_ITS ---
PROCEDURE: XR CHEST 2V INDICATIONS: COUGH TECHNIQUE: 2 views of the chest were acquired. COMPARISON: [facility], CR, XR CHEST 2V, 08/28/2022, 9:55. FINDINGS: Surgical changes and devices: None. Lungs and pleura: Lungs are clear. No pleural effusions or pneumothorax. Mediastinum: Mediastinal contours are normal. Heart size is normal. Bones and chest wall: No suspicious bony abnormalities. Soft tissues appear unremarkable. IMPRESSION: No acute cardiopulmonary pathology. Dictated by: Antonio Choe M.D. on 05/25/2023 at 14:14 Approved by: Antonio Choe M.D. on 05/25/2023 at 14:21
== END ==
PROVIDERS: Family Provider Family Medicine; PCP Family Medicine; Referring Provider Family Medicine; Visit Provider Family Medicine
DX: R05.3 Chronic cough (principal)
CPT/HCPCS: 71046

== ENCOUNTER → 2024-02-22 11:36 | Outpatient (CLI) | payer OTHER, SELFPAY ==
[2022-10-15 18:33] VITALS: BMI 41.1
--- NOTE | 2024-02-22 11:38 | DI.RAD.S_ITS ---
PROCEDURE: XR SHOULDER RT MIN 2V INDICATIONS: Pain in right shoulder TECHNIQUE: 3 views of the shoulder were acquired. COMPARISON: [facility], CR, XR SHOULDER LT MIN 2V, 07/07/2021, 11:01. FINDINGS: Bones: No acute fractures or dislocations. No suspicious bony lesions. Visualized ribs appear intact. Cystic changes are seen at the greater tuberosity that may indicate underlying rotator cuff tendinopathy. [id number] acromioclavicular joint osteoarthrosis. Soft tissues: Small calcifications are seen projecting inferior to the glenoid rim that could represent intra-articular loose bodies. IMPRESSION: 1. [id number] acromioclavicular joint osteoarthrosis. 2. Possible calcified loose bodies in the inferior glenohumeral joint. 3. Consider MRI for further evaluation if indicated clinically. Approved by: Biju Plascencia M.D. on 02/22/2024 at 16:30
== END ==
PROVIDERS: Family Provider Family Medicine; PCP Family Medicine; Referring Provider Family Medicine; Visit Provider Family Medicine
DX: M19.011 Primary osteoarthritis, right shoulder (principal); M25.511 Pain in right shoulder; G89.29 Other chronic pain
CPT/HCPCS: 73030

== ENCOUNTER → 2024-03-14 14:28 | Outpatient (CLI) | payer OTHER, SELFPAY ==
[2022-10-15 18:33] VITALS: BMI 41.1
--- NOTE | 2024-03-14 14:31 | DI.RAD.S_ITS ---
PROCEDURE: XR CHEST 2V INDICATIONS: COUGHING WHEEZING TECHNIQUE: 2 views of the chest were acquired. COMPARISON: [facility], , XR CHEST 2V, 08/28/2022, 9:55. [facility], CR, XR CHEST 2V, 05/25/2023, 12:54. FINDINGS: Surgical changes and devices: None. Lungs and pleura: Mild chronic interstitial prominence. Lungs are clear. No pleural effusions or pneumothorax. Mediastinum: Mediastinal contours are normal. Heart size is normal. Bones and chest wall: No suspicious bony abnormalities. Soft tissues appear unremarkable. IMPRESSION: 1. Mild chronic interstitial prominence. No acute cardiopulmonary abnormality is seen. Dictated by: Marilia Pulido M.D. on 03/14/2024 at 16:39 Approved by: Marilia Pulido M.D. on 03/14/2024 at 16:40
== END ==
LOC: RAD 14:28
PROVIDERS: Family Provider Family Medicine; PCP Family Medicine; Referring Provider Registered Nurse; Visit Provider Registered Nurse
DX: R05.1 Acute cough (principal); R06.2 Wheezing
CPT/HCPCS: 71046

== ENCOUNTER → 2024-04-05 10:56 | Outpatient (CLI) | payer OTHER, SELFPAY ==
[2022-10-15 18:33] VITALS: BMI 41.1
--- NOTE | 2024-04-05 10:57 | DI.CT.S_ITS ---
PROCEDURE: CT ANGIO CHEST PE PROTOCOL INDICATIONS: CHRONIC COUGH TECHNIQUE: After the administration of intravenous contrast, 2 mm thick sections acquired from the pulmonary apices to the posterior costophrenic angles. 3-dimensional maximum intensity projection (MIP) coronal and sagittal reformats were then acquired through the thorax. For radiation dose reduction, the following was used: automated exposure control, adjustment of mA and/or kV according to patient size. COMPARISON: [facility], CR, XR CHEST 2V, 03/14/2024, 14:42. FINDINGS: Image quality: Diagnostic. Pulmonary arteries: Enhancement of the main pulmonary artery is suboptimal with Hounsfield unit of 167. Within these limitations, no filling defect to the level of the bilateral segmental pulmonary arteries. Main pulmonary artery is borderline enlarged measuring 3.1 cm (4/63). Lower Neck: No enlarged lymph nodes. Thyroid: Calcified nodule in the left lobe measuring 1.3 cm. No thyroid nodules which require sonographic follow up, per consensus guidelines. Axillae: No enlarged lymph nodes. Chest Wall: Unremarkable. Bones: No acute fractures. No aggressive appearing lytic or blastic osseous lesions. Mild multilevel degenerative changes of the spine. Lungs and Pleura: No pneumothorax or pleural effusions. No consolidation or suspicious nodules. Heart: Heart size is mildly enlarged. No pericardial effusion. Thoracic Vessels: No aortic aneurysm. Minimal calcification of the thoracic aorta. Mediastinum and Jamia: No enlarged lymph nodes. Esophagus: No wall thickening. Small hiatal hernia. Upper Abdomen: Diffuse hypoattenuation of the liver. IMPRESSION: 1. Enhancement of the main pulmonary artery is suboptimal. Within these limitations, no filling defect to the level of the bilateral segmental pulmonary arteries. 2. Main pulmonary artery is borderline enlarged measuring 3.1 cm which may be seen in the setting of pulmonary hypertension. 3. Heart size is mildly enlarged. 4. No acute cardiopulmonary process. No suspicious pulmonary nodule or consolidation. 5. Diffuse hypoattenuation of the liver which may be seen in the setting of steatosis Dictated by: Sherrill Connell M.D. on 04/05/2024 at 12:16 Approved by: Sherrill Connell M.D. on 04/07/2024 at 11:25
== END ==
LOC: CT 10:56
PROVIDERS: Family Provider Family Medicine; PCP Family Medicine; Referring Provider Family Medicine; Visit Provider Family Medicine
DX: R05.3 Chronic cough (principal); I51.7 Cardiomegaly; K44.9 Diaphragmatic hernia without obstruction or gangrene
CPT/HCPCS: 71275; Q9967

== ENCOUNTER → 2024-05-04 09:39 | Outpatient (CLI) | payer OTHER, SELFPAY ==
[2022-10-15 18:33] VITALS: BMI 41.1
--- NOTE | 2024-05-04 09:40 | EKG_ITS ---
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
== END ==
PROVIDERS: Family Provider Family Medicine; PCP Family Medicine; Referring Provider Orthopaedic Surgery; Visit Provider Orthopaedic Surgery
DX: Z01.818 Encounter for other preprocedural examination (principal)
CPT/HCPCS: 93005; 93010

== ENCOUNTER → 2024-05-10 09:33 | Outpatient (CLI) | payer OTHER, SELFPAY ==
[2022-10-15 18:33] VITALS: BMI 41.1
--- NOTE | 2024-05-10 09:35 | DI.CT.S_ITS ---
PROCEDURE: CT UE RT WO CON INDICATIONS: PAIN IN RIGHT SHOULDER/JOINT TECHNIQUE: Noncontrast 0.75 mm thick sections acquired from the acromioclavicular joint to the inferior scapula, with coronal and sagittal reformatting. COMPARISON: [facility], MR, MR SHOULDER RIGHT WITHOUT CONTRAST, 04/21/2024, 10:02. [facility], CR, XR SHOULDER 2+ VIEWS RIGHT, 05/03/2024, 11:21. FINDINGS: Image quality: Excellent. Bones: Mild degenerative changes of the right acromioclavicular joint. Mild degenerative changes of the glenohumeral joint. Superior subluxation of the humeral head, consistent with rotator cuff pathology. Small ossification about the inferior glenoid, representing prior injury. No acute fracture or dislocation of the right shoulder. Visualized right ribs are unremarkable. Soft tissues: No significant glenohumeral effusion. No right axillary lymphadenopathy. No suspicious pulmonary nodule in the visualized right lung. Small calcified left thyroid nodule. Mild calcification of the thoracic aorta. IMPRESSION: 1. Mild degenerative change of the right acromioclavicular and the glenohumeral joint. 2. Superior subluxation of the humeral head, consistent with rotator cuff pathology. Dictated by: Bere Tsang M.D. on 05/10/2024 at 16:58 Approved by: Bere Tsang M.D. on 05/10/2024 at 17:05
== END ==
LOC: CT 09:34
PROVIDERS: Family Provider Family Medicine; PCP Family Medicine; Referring Provider Orthopaedic Surgery; Visit Provider Orthopaedic Surgery
DX: S43.001A Unspecified subluxation of right shoulder joint, initial encounter (principal); M25.511 Pain in right shoulder
CPT/HCPCS: 73200